=== PATIENT | male | born 1950 | race African-American/Black ===

== ENCOUNTER → 2017-10-20 | Day surgery (SDC) | payer MEDICARE, MEDICAID ==
[~2017-10-20] VITALS: Ht 170.2 cm; Wt 85.7 kg
[~2017-10-20] MED LIST: AMLO10TA80 PO; BACITRACIN 50,000 UNITS/VIAL ONE; BENA20TA3 PO; BUDE6HFA IH; BUPIVACAINE HCL 0.5% (5MG/ML) 50ML ONE; CEFAZOLIN SODIUM 1000MG/VIAL ONE; DEXAMETHASONE 4MG/ML 1ML VIAL ONE; EPHEDRINE SULFATE 50MG/ML VIAL ONE; FENTANYL CITRATE/PF 50MCG/ML 2ML VIAL ONE; GLYCOPYRROLATE 0.2 MG/ML 2ML VIAL ONE; LACTATED RINGERS 1,000 ML IV SCH; LIDOCAINE HCL/PF 1% 10 MG/ML 5ML VIAL ONE; METOCLOPRAMIDE HCL 10MG/2ML VIAL ONE; MIDAZOLAM HCL 2 MG/2 ML VIAL ONE; NEOSTIGMINE METHYLSULFATE 1MG/ML 10 ML VIAL ONE; NORMAL SALINE 0.9% 10 ML SYR ONE; ONDANSETRON HCL 4MG/2ML VIAL ONE; PHENYLEPHRINE HCL 10 MG/ML 1ML (IV VIAL) IV ONE; PROPOFOL 200MG/20ML VIAL IV ONE; ROCURONIUM BROMIDE 10MG/ML VIAL 5ML IV ONE; SKIN ADHESIVE 0.7 GM EA TOP ONE; SUCCINYLCHOLINE CHLORIDE 200MG/10ML VIAL IV ONE; TERBUTALINE SULFATE 1MG/ML VIAL ONE; TIOT18CA3 IH
== END | disposition home or self-care (01) ==
LOC: OR 05:38
PROVIDERS: ATTEND Surgery
DX: L02.11 Cutaneous abscess of neck (principal); L72.3 Sebaceous cyst; K21.9 Gastro-esophageal reflux disease without esophagitis; I10 Essential (primary) hypertension; J44.9 Chronic obstructive pulmonary disease, unspecified; M81.8 Other osteoporosis without current pathological fracture; K43.2 Incisional hernia without obstruction or gangrene; Z98.890 Other specified postprocedural states; Z87.891 Personal history of nicotine dependence
CPT/HCPCS: 10060; 87070; 87075; 87205; 88304; J0330; J0690; J2370; J2405; J2710; J2765; J3490; J7120; A4216; J2250; J2704; J3010

== ENCOUNTER 2017-10-28 05:54 | Inpatient (IN) | payer MEDICARE, MEDICAID ==
[~2017-10-28] VITALS: Ht 170.2 cm; Wt 86.2 kg
[~2017-10-28 05:54] MED LIST changes: -AMLO10TA80 PO; -BACITRACIN 50,000 UNITS/VIAL ONE; -BENA20TA3 PO; -BUPIVACAINE HCL 0.5% (5MG/ML) 50ML ONE; -CEFAZOLIN SODIUM 1000MG/VIAL ONE; -DEXAMETHASONE 4MG/ML 1ML VIAL ONE; -EPHEDRINE SULFATE 50MG/ML VIAL ONE; -FENTANYL CITRATE/PF 50MCG/ML 2ML VIAL ONE; -GLYCOPYRROLATE 0.2 MG/ML 2ML VIAL ONE; -LACTATED RINGERS 1,000 ML IV SCH; -LIDOCAINE HCL/PF 1% 10 MG/ML 5ML VIAL ONE; -METOCLOPRAMIDE HCL 10MG/2ML VIAL ONE; -MIDAZOLAM HCL 2 MG/2 ML VIAL ONE; -NEOSTIGMINE METHYLSULFATE 1MG/ML 10 ML VIAL ONE; -NORMAL SALINE 0.9% 10 ML SYR ONE; -ONDANSETRON HCL 4MG/2ML VIAL ONE; -PHENYLEPHRINE HCL 10 MG/ML 1ML (IV VIAL) IV ONE; -PROPOFOL 200MG/20ML VIAL IV ONE; -ROCURONIUM BROMIDE 10MG/ML VIAL 5ML IV ONE; -SKIN ADHESIVE 0.7 GM EA TOP ONE; -SUCCINYLCHOLINE CHLORIDE 200MG/10ML VIAL IV ONE; -TERBUTALINE SULFATE 1MG/ML VIAL ONE
[2017-10-28] MEDS ORDERED: SKIN ADHESIVE 0.7 GM EA TOP ONE (06:52)
[2017-10-28] MEDS ORDERED: BUPIVACAINE HCL/PF 0.25% (2.5MG/ML) 10ML ONE (06:52)
[2017-10-28] MEDS ORDERED: BUPIVACAINE HCL/PF 0.5% (5MG/ML) 10ML ONE (06:53)
[2017-10-28] MEDS ORDERED: NORMAL SALINE 0.9% 10 ML SYR ONE (06:53)
[2017-10-28] MEDS ORDERED: BACITRACIN 50,000 UNITS/VIAL ONE (06:53)
[2017-10-28] MEDS ORDERED: MORPHINE SULFATE 4 MG/ML CPJ (NOT FOR IM USE) IV PRN (07:00)
[2017-10-28] MEDS ORDERED: HYDROCODONE/ACETAMINOPHEN 5/325MG TABLET PO PRN ×2 (07:00)
[2017-10-28 07:08] LABS: CLARITY URINE CLEAR (CLEAR); COLOR URINE YELLOW (YELLOW); KETONES URINE NEGATIVE (NEGATIVE); LEUKOCYTE ESTERASE URINE NEGATIVE (NEGATIVE); NITRITE URINE NEGATIVE (NEGATIVE); OCCULT BLOOD URINE NEGATIVE (NEGATIVE); PH URINE 5.5 (4.5-8.0); PROTEIN URINE NEGATIVE (NEGATIVE); SPECIFIC GRAVITY URINE 1.011 (1.005-1.030); UROBILINOGEN URINE 0.2 E.U./dL (0.2-1.0)
[2017-10-28] MEDS ORDERED: AMLO10TA80 PO (08:46)
[2017-10-28] MEDS: MORPHINE SULFATE 4 MG/ML CPJ (NOT FOR IM USE) IV PRN ×4 (09:40→18:30)
[2017-10-28 11:00] VITALS: BP_SYST 122; BP_SYST 126; BP_DIAS 69; BP_DIAS 86
[2017-10-28] MEDS ORDERED: BENA20TA3 PO (11:41)
[2017-10-28 16:00] VITALS: BP 134/79
[2017-10-28] MEDS: IPRATROPIUM BROMIDE (0.02%) 0.5MG/2.5ML NEB HHN SCH ×2 (16:16→21:12)
[2017-10-28] MEDS: DEXT 5%/0.45% NACL KCL 20MEQ/L 1,000 ML IV SCH (16:26)
[2017-10-28 20:00] VITALS: BP 129/81
[2017-10-28] MEDS ORDERED: DIAZEPAM 5 MG TABLET PO SCH (23:00)
[2017-10-29] VITALS: BP 115/59
[2017-10-29] MEDS: IPRATROPIUM BROMIDE (0.02%) 0.5MG/2.5ML NEB HHN SCH ×2 (02:21→10:04)
[2017-10-29 04:00] VITALS: BP 133/74
[2017-10-29] MEDS: DEXT 5%/0.45% NACL KCL 20MEQ/L 1,000 ML IV SCH (06:41)
[2017-10-29 08:00] VITALS: BP 138/87
[2017-10-29 12:00] VITALS: BP 133/83
== END 2017-10-29 15:10 | disposition home or self-care (01) | DRG 355 ==
LOC: OR 05:54 → 6EST 05:55
PROVIDERS: ADMIT Surgery; ATTEND Surgery
PROC: 0WUF0JZ Supplement Abdominal Wall with Synthetic Substitute, Open Approach (ICD-10-PCS; principal; 2017-10-28 07:30)
DX: K43.2 Incisional hernia without obstruction or gangrene (principal)
CPT/HCPCS: 81003; 94640; A4216; J0690; J1100; J2250; J2270; J2405; J2704; J2710; J3010; J3105; J3490; J7120

== ENCOUNTER → 2024-03-01 | Day surgery (SDC) | payer MEDICARE, MEDICAID ==
[~2024-03-01] VITALS: Ht 170.2 cm; Wt 95.3 kg
[~2024-03-01] MED LIST changes: +ALBU18HF2 IH; +AMLO-138 PO; +ATROPINE SULFATE 0.4MG/ML VIAL IV PRN; -BUDE6HFA IH; +BUPIVACAINE HCL/PF 0.5% (5MG/ML) 10ML ONE; +BUPR-315 PO; +CLOP75TA33 PO; +CRES10 PO; +ETOMIDATE 2MG/ML 10ML VIAL IV ONE; +FENTANYL CITRATE/PF 50MCG/ML 5ML VIAL ONE; +GLYCOPYRROLATE 0.2 MG/ML 2ML VIAL ONE; +HYDR25TA PO; +HYDRALAZINE 20MG/ML VIAL IV PRN; +HYDROMORPHONE HCL/PF 2MG/ML INJ IV PRN; +LABETALOL 5MG/ML 4ML INJ IV PRN; +LACTATED RINGERS 1,000 ML IV SCH; +MEPERIDINE HCL/PF 25MG/ML CPJ IV PRN; +MOME13HF12 IH; +MORPHINE SULFATE 2 MG/ML INJ (NOT FOR IM USE) IV PRN; +ONDANSETRON HCL 4MG/2ML INJ IV PRN; +PRED10TA PO; +ROCURONIUM BROMIDE 10MG/ML VIAL 5ML IV ONE; +SKIN ADHESIVE 0.7 GM EA TOP ONE
[2024-03-01] MEDS: LACTATED RINGERS 1,000 ML IV SCH (06:59)
== END | disposition home or self-care (01) ==
LOC: OR 05:33
PROVIDERS: ATTEND Surgery
DX: L72.0 Epidermal cyst (principal); R22.2 Localized swelling, mass and lump, trunk; L72.3 Sebaceous cyst; I10 Essential (primary) hypertension; E78.5 Hyperlipidemia, unspecified; J44.9 Chronic obstructive pulmonary disease, unspecified; F32.9 Major depressive disorder, single episode, unspecified; Z86.73 Personal history of transient ischemic attack (TIA), and cerebral infarction without residual deficits; Z79.899 Other long term (current) drug therapy; Z98.890 Other specified postprocedural states
CPT/HCPCS: 11406; 88304; J3010; J3490 ×4